=== PATIENT | male | born 2000 | race Caucasian/White ===

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

== ENCOUNTER 2020-11-10 09:15 | Emergency (ER) | payer OTHER ==
[~2020-11-10 09:15] MED LIST: CLARITIN10 MG PO; DEXMETHYLPHENID40 MG PO; FLEXERIL10 MG PO; FOCALIN XR25 MG PO; IBUPROFEN800 MG PO; PRILOSEC20 MG PO; ZOFRAN4 MG PO
[2020-11-10 10:04] LABS: HCT 44.8 % (42.0-52.0); LYMPHOCYTE 31.9 % (15-48); MCH 30.8 pg (25.0-31.0); MCHC 33.5 g/dL (32.0-36.0); MONOCYTE 9.9 % (0-12); MPV 11.8 fL (6.0-9.5); NEUTROPHIL 53.8 % (41-80); NRBC 0; PLT 264 K/uL (150-400); RBC 4.87 M/uL (4.70-6.00); RDW 12.2 % (11.5-14.0); WBC 8.4 K/uL (4.0-10.5)
[2020-11-10 10:04] LABS: BILIRUBIN NEGATIVE (NEGATIVE); BLOOD NEGATIVE Ery/uL (NEGATIVE); CLARITY CLEAR (CLEAR); COLOR YELLOW (YELLOW); GLUCOSE (U) NORMAL (NORMAL); LEUKOCYTES NEGATIVE Leu/uL (NEGATIVE); NITRITE NEGATIVE (NEGATIVE); PROTEIN NEGATIVE (NEGATIVE); SPECIFIC GRAVITY 1.025 (1.001-1.030); UROBILINOGEN 0.2 mg/dL (0.2-1.0); pH 6.5 (5.0-9.0)
[2020-11-10 10:18] LABS: ALBUMIN 4.3 g/dL (3.4-5.0); BILIRUBIN - TOTAL 0.7 mg/dL (0.2-1.0); BUN/CREAT RATIO (CALC) 10.4 RATIO; CREATININE 0.77 mg/dL (0.67-1.17); GLOBULIN (CALCULATION) 3.4 g/dL; POTASSIUM 3.7 mmol/L (3.5-5.1); TOTAL PROTEIN 7.7 g/dL (6.4-8.2)
== END 2020-11-10 10:35 | disposition home or self-care (01) ==
LOC: FER 09:15
PROVIDERS: Emergency Medicine
DX: R07.89 Other chest pain (principal); R10.9 Unspecified abdominal pain; F90.9 Attention-deficit hyperactivity disorder, unspecified type; Z79.899 Other long term (current) drug therapy
CPT/HCPCS: 36415; 80053; 81003; 82150; 83690; 85025; 99284

== ENCOUNTER 2021-02-02 15:03 | Emergency (ER) | payer OTHER ==
[2021-02-02 16:06] LABS: CORONAVIRUS 2019 SARS-COV-2 NEGATIVE (NEGATIVE); INFLUENZA A NAA NEGATIVE (NEGATIVE)
[2021-02-02] MEDS ORDERED: ZPAK PO (16:38)
[2021-02-02] MEDS ORDERED: ZOFRAN4 M1 PO (16:38)
[2021-02-02] MEDS ORDERED: MEDROL 4MG DOSEP4 MG PO (16:38)
== END 2021-02-02 17:15 | disposition home or self-care (01) ==
LOC: FER 15:03
PROVIDERS: Emergency Medicine
DX: J06.9 Acute upper respiratory infection, unspecified (principal); J45.909 Unspecified asthma, uncomplicated; R19.7 Diarrhea, unspecified; R11.0 Nausea; Z20.822 Contact with and (suspected) exposure to COVID-19
CPT/HCPCS: 71045; 87880; J1100; U0002

== ENCOUNTER 2021-02-13 07:57 | Emergency (ER) | payer OTHER ==
[~2021-02-13 07:57] MED LIST changes: +MEDROL 4MG DOSEP4 MG PO; +ZOFRAN4 M1 PO; +ZPAK PO
[2021-02-13 08:28] LABS: BILIRUBIN NEGATIVE (NEGATIVE); BLOOD NEGATIVE Ery/uL (NEGATIVE); CLARITY CLEAR (CLEAR); COLOR YELLOW (YELLOW); GLUCOSE (U) NORMAL (NORMAL); LEUKOCYTES NEGATIVE Leu/uL (NEGATIVE); NITRITE NEGATIVE (NEGATIVE); PROTEIN NEGATIVE (NEGATIVE); SPECIFIC GRAVITY 1.015 (1.001-1.030); UROBILINOGEN 0.2 mg/dL (0.2-1.0); pH 7.5 (5.0-9.0)
[2021-02-13 08:38] LABS: BASOPHIL 0.7 % (0-2); EOSINOPHIL 4.1 % (0-5); HCT 43.4 % (42.0-52.0); HGB 14.8 g/dl (13.2-18.0); LYMPHOCYTE 42.2 % (15-48); MCH 31.2 pg (25.0-31.0); MCHC 34.1 g/dL (32.0-36.0); MCV 91.4 fL (78.0-100.0); MONOCYTE 9.4 % (0-12); MPV 11.3 fL (6.0-9.5); NEUTROPHIL 41.7 % (41-80); NRBC 0; PLT 260 K/uL (150-400); RBC 4.75 M/uL (4.70-6.00); RDW 12.4 % (11.5-14.0); WBC 12.6 K/uL (4.0-10.5)
[2021-02-13 08:51] LABS: ALBUMIN 3.8 g/dL (3.4-5.0); BILIRUBIN - TOTAL 0.4 mg/dL (0.2-1.0); BUN/CREAT RATIO (CALC) 13.8 RATIO; CREATININE 0.8 mg/dL (0.67-1.17); GLOBULIN (CALCULATION) 3.1 g/dL; POTASSIUM 4.5 mmol/L (3.5-5.1); TOTAL PROTEIN 6.9 g/dL (6.4-8.2)
[2021-02-13] MEDS ORDERED: ONDANSETRON ODT4 MG PO (10:12)
[2021-02-13] MEDS ORDERED: BENTYL10 MG PO (10:12)
== END 2021-02-13 11:02 | disposition home or self-care (01) ==
LOC: FER 07:57
PROVIDERS: Emergency Medicine
DX: A08.4 Viral intestinal infection, unspecified (principal)
CPT/HCPCS: 36415; 80053; 81003; 82150; 83690; 85025; J1170; J2405; J7030; Q9967